=== PATIENT | male | born 1990 | race Caucasian/White ===

== ENCOUNTER 2020-12-08 23:29 | Emergency (ER) | payer OTHER ==
[2020-12-08 23:44] VITALS: RESP 18; TEMP 98.2
[2020-12-08] MEDS ORDERED: PROPARACAINE 0.5% OPHTH DROPS 15 ML BTL RIGHT EYE STA (23:57)
--- NOTE | 2020-12-09 00:09 | ED ---
Eye Problem HPI - General Chief complaint: Eye Problems Stated complaint: Left eye injury Time Seen by Provider: 12/08/20 23:52 Source: patient, RN notes reviewed, old records reviewed Mode of arrival: ambulatory Limitations: no limitations - History of Present Illness Initial comments: This is a 30-year-old male DF for evaluation patient does have pain. Left eye pain. Patient had sustained an injury by some sort of systemic in the left eye. Patient having pain and tearing of that left jaw left eye but no real vision changes maybe some blurry vision from tearing. Symptoms worse with light MD chief complaint: eye pain, eye redness, eye injury, foreign body -: hour(s) Onset Description: sudden Location: left eye Place: home If Injury: none Eye Symptoms: burning, redness, pain, blurry vision Severity: moderate Severity scale (1-10): 4 If Pain, Quality: sharp Consistency: constant Associated Symptoms: none Treatments Prior to Arrival: none - Related Data Allergies Allergy/AdvReac Type Severity Reaction Status Date / Time Penicillins Allergy Unknown Verified 12/08/20 23:44 Review of Systems ROS Statement: Those systems with pertinent positive or pertinent negative responses have been documented in the HPI. ROS Other: All systems not noted in ROS Statement are negative. Past Medical History Past Medical History: No Reported History History of Any Multi-Drug Resistant Organisms: None Reported Past Surgical History: Orthopedic Surgery Past Psychological History: No Psychological Hx Reported Smoking Status: Current every day smoker Past Alcohol Use History: None Reported Past Drug Use History: None Reported General Exam Limitations: no limitations General appearance: alert, in no apparent distress Head exam: Present: atraumatic, normocephalic, normal inspection Eye exam: Present: normal appearance, PERRL, EOMI. Absent: scleral icterus, conjunctival injection, periorbital swelling Pupils: Present: other (L eye 10 oclock corneal abrasion) ENT exam: Present: normal exam, mucous membranes moist Neck exam: Present: normal inspection. Absent: tenderness, meningismus, lymphadenopathy Respiratory exam: Present: normal lung sounds bilaterally. Absent: respiratory distress, wheezes, rales, rhonchi, stridor Cardiovascular Exam: Present: regular rate, normal rhythm, normal heart sounds. Absent: systolic murmur, diastolic murmur, rubs, gallop, clicks GI/Abdominal exam: Present: soft, normal bowel sounds. Absent: distended, tende rness, guarding, rebound, rigid Extremities exam: Present: normal inspection, full ROM, normal capillary refill. Absent: tenderness, pedal edema, joint swelling, calf tenderness Back exam: Present: normal inspection Neurological exam: Present: alert, oriented X3, CN II-XII intact Psychiatric exam: Present: normal affect, normal mood Skin exam: Present: warm, dry, intact, normal color. Absent: rash Course Vital Signs 12/08/20 23:42 Temperature 98.2 F Pulse Rate 90 Respiratory 18 Rate Blood Pressure 135/87 O2 Sat by Pulse 100 Oximetry Medical Decision Making - Medical Decision Making 30 male who did sustain a left eye corneal abrasion earlier in the night. Patient has pain control currently, pleurisy test again didn't reveal abrasion at 10:00. Patient given eyedrops, antibiotic eyedrops and can be discharged home Disposition Clinical Impression: Left corneal abrasion Disposition: HOME SELF-CARE Condition: Good Instructions (If sedation given, give patient instructions): Corneal Abrasion (ED) Is patient prescribed a controlled substance at d/c from ED?: No Referrals: None,Stated [Primary Care Provider] - 1-2 days
[2020-12-09] MEDS ORDERED: FLUORESCEIN STRIPS 1 MG STRIP LEFT EYE STA (00:42)
[2020-12-09] MEDS ORDERED: TOBRAMYCIN 0.3% OPHTH DROPS 5 ML BTL LEFT EYE STA (00:46)
[2020-12-09 01:04] VITALS: BP 151/88; PULSE 97
== END 2020-12-09 01:06 | disposition home or self-care (01) ==
LOC: EC 23:29
DX: S05.02XA Injury of conjunctiva and corneal abrasion without foreign body, left eye, initial encounter (principal); F17.200 Nicotine dependence, unspecified, uncomplicated; Z88.0 Allergy status to penicillin; W22.8XXA Striking against or struck by other objects, initial encounter; Y92.89 Other specified places as the place of occurrence of the external cause
CPT/HCPCS: 99283